=== PATIENT | male | born 1985 | race Caucasian/White ===

== ENCOUNTER 2017-11-12 16:45 | Emergency (ER) | payer OTHER ==
[2017-11-12] MEDS ORDERED: NA CHLORIDE 0.9% 1,000 ML ONE (17:37)
[2017-11-12] MEDS ORDERED: ONDANSETRON 4 MG/2 ML VIAL ONE (17:37)
[2017-11-12 18:07] LABS: Absolute Lymphocytes (CBC) 1.9 K/uL (0.7-4.9); Absolute Monocytes 0.8 K/uL (0.1-1.3); Basophils % 0.6 % (0-1.3); Eosinophils % 0.4 % (0-4.4); Hematocrit 46.9 % (39.6-49.0); Lymphocytes % 13.8 % (15.3-44.8); MCH 29.3 pg (27.0-35.0); MCV 89.5 fL (80-100); MPV 8.8 fL (7.6-11.3); Monocytes % 5.4 % (3.3-12.3); RBC Red Blood Cell Count 5.25 M/uL (4.33-5.43)
[2017-11-12 18:18] LABS: Potassium 4.4 mEq/L (3.6-5.0)
[2017-11-12 18:24] LABS: Albumin 4.5 g/dL (3.2-5.5); Bilirubin Direct 0.1 mg/dL (0-0.2); Bilirubin Total 0.5 mg/dL (0.3-1.2); Protein, Total 7.4 g/dL (6.0-8.3)
--- NOTE | 2017-11-12 19:26 | EDPHYS ---
Physician Documentation [facility] Name: Tristen Barrett Age: 31 yrs Sex: Male : 1985 Arrival Date: 11/12/2017 Time: 16:52 Bed 16 Private MD: Lynette Tomlinson H ED Physician Jaciel Garcia HPI: 11/12 18:05 This 31 yrs old Male presents to ER via Ambulatory with complaints of pm1 Nausea/Vomiting. 18:05 The patient presents to the emergency department with vomiting, 2 times since the onset pm1 of symptoms, diarrhea, 2 times since the onset of symptoms. Onset: The symptoms/episode began/occurred last night. Possible causes: Possible bad food. The symptoms are aggravated by food , The symptoms are alleviated by nothing. Associated signs and symptoms: Pertinent negatives: abdominal pain, dysuria, fever. Severity of symptoms: in the emergency department the symptoms have improved. The patient has experienced similar episodes in the past, a few times, today's symptoms are similar, two weeks ago. Patient reports dark diarrhea. has taken Pepto Bismol for symptoms. Historical: - Allergies: 16:55 No Known Allergies; sv - Home Meds: 16:55 None [Active]; sv - PMHx: 16:55 None; sv - PSHx: 16:55 knuckles; sv - Immunization history:: Adult Immunizations up to date. - Social history:: Smoking status: Patient uses tobacco products, smokes one pack cigarettes per day. chewing tobacco, Patient uses alcohol, only on a social basis. 6-7 beers. - Ebola Screening: : No symptoms or risks identified at this time. ROS: 18:05 Constitutional: Negative for fever, chills, and weight loss, Eyes: Negative for injury, pm1 pain, redness, and discharge, ENT: Negative for injury, pain, and discharge, Neck: Negative for injury, pain, and swelling, Cardiovascular: Negative for chest pain, palpitations, and edema, Respiratory: Negative for shortness of breath, cough, wheezing, and pleuritic chest pain. 18:05 Back: Negative for injury and pain, : Negative for injury, bleeding, discharge, and swelling, MS/Extremity: Negative for injury and deformity, Skin: Negative for injury, rash, and discoloration, Neuro: Negative for headache, weakness, numbness, tingling, and seizure. 18:05 Abdomen/GI: Positive for nausea, vomiting, diarrhea, Negative for abdominal pain. Exam: 18:05 Constitutional: This is a well developed, well nourished patient who is awake, alert, pm1 and in no acute distress. Head/Face: Normocephalic, atraumatic. Eyes: Pupils equal round and reactive to light, extra-ocular motions intact. Lids and lashes normal. Conjunctiva and sclera are non-icteric and not injected. Cornea within normal limits. Periorbital areas with no swelling, redness, or edema. ENT: Nares patent. No nasal discharge, no septal abnormalities noted. Tympanic membranes are normal and external auditory canals are clear. Oropharynx with no redness, swelling, or masses, exudates, or evidence of obstruction, uvula midline. Mucous membranes moist. Neck: Trachea midline, no thyromegaly or masses palpated, and no cervical lymphadenopathy. Supple, full range of motion without nuchal rigidity, or vertebral point tenderness. No Meningismus. Chest/axilla: Normal chest wall appearance and motion. Nontender with no deformity. No lesions are appreciated. Cardiovascular: Regular rate and rhythm with a normal S1 and S2. No gallops, murmurs, or rubs. Normal PMI, no JVD. No pulse deficits. Respiratory: Lungs have equal breath sounds bilaterally, clear to auscultation and percussion. No rales, rhonchi or wheezes noted. No increased work of breathing, no retractions or nasal flaring. Abdomen/GI: Soft, non-tender, with normal bowel sounds. No distension or tympany. No guarding or rebound. No evidence of tenderness throughout. Back: No spinal tenderness. No costovertebral tenderness. Full range of motion. Skin: Warm, dry with normal turgor. Normal color with no rashes, no lesions, and no evidence of cellulitis. MS/ Extremity: Pulses equal, no cyanosis. Neurovascular intact. Full, normal range of motion. 18:05 Neuro: Orientation: is normal, Motor: moves all fours, Sensation: is normal, no obvious gross deficits, Gait: is steady, at a normal pace, without difficulty. 19:23 Abdomen/GI: Rectal exam: Stool: refused test pm1 Vital Signs: 16:56 BP 128 / 80; Pulse 125; Resp 20; Temp 98.4; Pulse Ox 98% ; Weight 88.45 kg; Height 6 sv ft. 1 in. (185.42 cm); Pain 6/10; 17:00 BP 107 / 75; Pulse 74; Resp 19; Pulse Ox 100% ; rb1 19:30 BP 100 / 67; Pulse 67; Resp 15; Temp 97.8(O); Pulse Ox 97% on R/A; Pain 0/10; bs1 16:56 Body Mass Index 25.73 (88.45 kg, 185.42 cm) sv MDM: 17:21 Patient medically screened. pm1 19:24 Data reviewed: vital signs. Data interpreted: Pulse oximetry: on room air is 98 %. pm1 Interpretation: normal. Counseling: I had a detailed discussion with the patient and/or guardian regarding: the historical points, exam findings, and any diagnostic results supporting the discharge/admit diagnosis, lab results, the need for outpatient follow up, to return to the emergency department if symptoms worsen or persist or if there are any questions or concerns that arise at home. 11/12 17:21 Order name: Basic Metabolic Panel; Complete Time: 19:07 pm1 11/12 17:21 Order name: CBC with Diff; Complete Time: 19:07 pm1 11/12 17:21 Order name: Hepatic Function; Complete Time: 19:07 pm1 11/12 17:21 Order name: Lipase; Complete Time: 19:07 pm1 11/12 17:21 Order name: IV Saline Lock; Complete Time: 18:02 pm1 02 17:21 Order name: Labs collected and sent; Complete Time: 18:02 pm1 Administered Medications: 17:40 Drug: NS 0.9% 1000 ml Route: IV; Rate: 1000 ml; Site: left antecubital; rb1 20:10 Follow up: IV Status: Completed infusion bs1 17:40 Drug: Zofran 4 mg Route: IVP; Site: left antecubital; rb1 18:00 Follow up: Response: No adverse reaction; Nausea is decreased rb1 Disposition: 11/13 12:42 Co-signature as Attending Physician, Jaciel Garcia MD. Disposition: 11/12/17 19:25 Discharged to Home. Impression: Nausea and vomiting, Diarrhea, unspecified. - Condition is Stable. - Discharge Instructions: Food Choices to Help Relieve Diarrhea, Adult, Diarrhea, Nausea and Vomiting, Viral Gastroenteritis. - Prescriptions for Bentyl 20 mg Oral Tablet - take 1 tablet by ORAL route every 6 hours As needed; 20 tablet. Zofran 4 mg Oral Tablet - take 1 tablet by ORAL route every 8 hours As needed; 20 tablet. - Medication Reconciliation Form, Thank You Letter form. - Follow up: Emergency Department; When: As needed; Reason: Worsening of condition. Follow up: Lynette Tomlinson DO; When: As needed; Reason: Recheck today's complaints, Continuance of care, Re-evaluation by your physician. - Problem is new. - Symptoms have improved. Signatures: Dispatcher [employer] EDMS Teresa Rockwell, RN RN Ella Trejo RN RN rb1 Kevin Maier NP COSMETIC MANAGER pm1 Jaciel Garcia MD MD gs Salazar, Brittany, RN RN bs1 Corrections: (The following items were deleted from the chart) 11/12 20:11 19:25 11/12/2017 19:25 Discharged to Home. Impression: Nausea and vomiting; Diarrhea, bs1 unspecified. Condition is Stable. Forms are Medication Reconciliation Form, Thank You Letter, Antibiotic Education, Prescription Opioid Use. Follow up: Emergency Department; When: As needed; Reason: Worsening of condition. Follow up: Lynette Tomlinson; When: As needed; Reason: Recheck today's complaints, Continuance of care, Re-evaluation by your physician. Problem is new. Symptoms have improved. pm1
--- NOTE | 2017-11-12 19:26 | ER ---
Nurse's Notes [facility] Emergency Department Name: Tristen Barrett Age: 31 yrs Sex: Male : 1985 Arrival Date: 11/12/2017 Time: 16:52 Bed 16 Private MD: Lynette Tomlinson H Diagnosis: Nausea and vomiting;Diarrhea, unspecified Presentation: 11/12 16:53 Presenting complaint: Patient states: "last night I went to dinner and threw up right sv after. I threw up this morning and there was blood in there." Spouse states that she's noticed a couple of weeks. Pt reports red streaked vomiting, dizziness, black tarry loose stools that started today. Pt took Pepto Bismol today and threw it up right after. Transition of care: patient was not received from another setting of care. Onset of symptoms was November 11, 2017. 16:53 Method Of Arrival: Ambulatory sv 16:53 Acuity: VIOLETA 3 sv 16:54 Risk Assessment: Do you want to hurt yourself or someone else? Patient reports no sv desire to harm self or others. Care prior to arrival: None. 17:05 Initial Sepsis Screen: Does the patient meet any 2 criteria? No. Patient's initial rb1 sepsis screen is negative. Does the patient have a suspected source of infection? No. Patient's initial sepsis screen is negative. Historical: - Allergies: 16:55 No Known Allergies; sv - Home Meds: 16:55 None [Active]; sv - PMHx: 16:55 None; sv - PSHx: 16:55 knuckles; sv - Immunization history:: Adult Immunizations up to date. - Social history:: Smoking status: Patient uses tobacco products, smokes one pack cigarettes per day. chewing tobacco, Patient uses alcohol, only on a social basis. 6-7 beers. - Ebola Screening: : No symptoms or risks identified at this time. Screenin:05 Abuse screen: Denies threats or abuse. Nutritional screening: Has had N/V for 3 or more rb1 days. Tuberculosis screening: No symptoms or risk factors identified. Fall Risk None identified. Assessment: 17:05 General: Appears in no apparent distress. comfortable, Behavior is calm, cooperative, rb1 Denies fever. Pain: Denies pain. Neuro: Level of Consciousness is awake, alert, obeys commands, Oriented to person, place, time, situation. Cardiovascular: Capillary refill < 3 seconds is brisk in bilateral fingers. Respiratory: Airway is patent Respiratory effort is even, unlabored, Respiratory pattern is regular, symmetrical. GI: Abdomen is flat, Bowel sounds present X 4 quads. Reports nausea, vomiting. : No signs and/or symptoms were reported regarding the genitourinary system. Derm: Skin is pink, warm \\T\\ dry. Musculoskeletal: Range of motion: intact in all extremities. 18:00 Reassessment: Patient appears in no apparent distress at this time. No changes from rb1 previously documented assessment. 19:10 Reassessment: Report received from MAYANK Jaramillo. bs1 19:10 General: Appears in no apparent distress. comfortable, Behavior is calm, cooperative. bs1 Pain: Denies pain. Neuro: Level of Consciousness is awake, alert, obeys commands, Oriented to person, place, time, situation. Cardiovascular: Denies chest pain, shortness of breath, Heart tones S1 S2 Capillary refill < 3 seconds Patient's skin is warm and dry. Respiratory: Airway is patent Trachea midline Respiratory effort is even, unlabored, Respiratory pattern is regular, symmetrical, Breath sounds are clear bilaterally. GI: Abdomen is flat, Bowel sounds present X 4 quads. Patient currently denies nausea. : No signs and/or symptoms were reported regarding the genitourinary system. Derm: Skin is intact, Skin is pink, warm \\T\\ dry. Musculoskeletal: Capillary refill < 3 seconds, Range of motion: intact in all extremities. Vital Signs: 16:56 BP 128 / 80; Pulse 125; Resp 20; Temp 98.4; Pulse Ox 98% ; Weight 88.45 kg; Height 6 sv ft. 1 in. (185.42 cm); Pain 6/10; 17:00 BP 107 / 75; Pulse 74; Resp 19; Pulse Ox 100% ; rb1 19:30 BP 100 / 67; Pulse 67; Resp 15; Temp 97.8(O); Pulse Ox 97% on R/A; Pain 0/10; bs1 16:56 Body Mass Index 25.73 (88.45 kg, 185.42 cm) sv ED Course: 16:52 Patient arrived in ED. sb2 16:52 Lynette Tomlinson DO is Private Physician. sb2 16:55 Triage completed. sv 16:58 Arm band placed on left wrist. sv 17:05 Patient has correct armband on for positive identification. Placed in gown. Bed in low rb1 position. Call light in reach. Side rails up X 1. Pulse ox on. NIBP on. Warm blanket given. 17:10 Kevin Maier NP is PHCP. pm1 17:10 Jaciel Garcia MD is Attending Physician. pm1 17:20 Ella Kaufman, RN is Primary Nurse. rb1 17:25 Inserted saline lock: 22 gauge in left antecubital area, using aseptic technique. Blood rb1 collected. 19:24 Lynette Tomlinson DO is Referral Physician. pm1 20:09 No provider procedures requiring assistance completed. IV discontinued, bleeding bs1 controlled, No redness/swelling at site. Pressure dressing applied. Administered Medications: 17:40 Drug: NS 0.9% 1000 ml Route: IV; Rate: 1000 ml; Site: left antecubital; rb1 20:10 Follow up: IV Status: Completed infusion bs1 17:40 Drug: Zofran 4 mg Route: IVP; Site: left antecubital; rb1 18:00 Follow up: Response: No adverse reaction; Nausea is decreased rb1 Outcome: 19:25 Discharge ordered by . pm1 20:09 Discharged to home ambulatory. bs1 20:09 Condition: stable 20:09 Discharge instructions given to patient, Instructed on discharge instructions, follow up and referral plans. medication usage, Demonstrated understanding of instructions, follow-up care, medications, Prescriptions given X 2. 20:11 Patient left the ED. bs1 Signatures: Teresa Rockwell RN RN Ella Kaufman, RN RN rb1 Kevin Maier NP SHEET METAL TECHNICIAN pm1 Kitty Vazquez, RN RN bs1 Emma Hines sb2
== END 2017-11-12 20:11 | disposition home or self-care (01) ==
LOC: ER 16:45
DX: R11.2 Nausea with vomiting, unspecified (principal); R19.7 Diarrhea, unspecified; F17.210 Nicotine dependence, cigarettes, uncomplicated
CPT/HCPCS: 36415; 80048; 80076; 83690; 85025; 96361; 96374; 99284; J2405; J7030